=== PATIENT | female | born 1960 | race Caucasian/White ===

== ENCOUNTER 2018-02-09 17:00 | Outpatient (RCR) | payer BC ==
[~2018-02-09 17:00] MED LIST: LEVOTHYROXINE50 MCG PO; NABUMETONE500 MG PO; TRAZODONE HCL50 MG PO
== END 2018-02-13 ==
LOC: PT 17:00
PROVIDERS: ATTEND Specialist
DX: M17.11 Unilateral primary osteoarthritis, right knee (principal); E66.01 Morbid (severe) obesity due to excess calories

== ENCOUNTER 2018-03-09 16:57 | Outpatient (RCR) | payer BC | END 2018-03-16 | LOC: PT 16:57 | PROVIDERS: ATTEND Specialist | DX: M17.11 Unilateral primary osteoarthritis, right knee (principal); M25.561 Pain in right knee; R26.2 Difficulty in walking, not elsewhere classified; M62.81 Muscle weakness (generalized); E66.01 Morbid (severe) obesity due to excess calories | CPT/HCPCS: 97139 ==

== ENCOUNTER 2018-04-09 11:00 | Outpatient (RCR) | payer BC | END 2018-04-16 | LOC: PT 11:00 | PROVIDERS: ATTEND Specialist | DX: M17.11 Unilateral primary osteoarthritis, right knee (principal); M25.561 Pain in right knee; M62.81 Muscle weakness (generalized); R26.2 Difficulty in walking, not elsewhere classified | CPT/HCPCS: 97139 ==

== ENCOUNTER → 2018-12-03 | Outpatient (CLI) | payer BC ==
--- NOTE | 2018-12-03 13:08 | Diagnostic Imaging Report ---
EXAM: US ABDOMEN COMPLETE DATE: 12/03/2018 10:00 AM INDICATION: ^SCREENING FOR COLONIC NEOPLASIA; HEP C; HTN COMPARISON: None FINDINGS: Grayscale and color flow Doppler ultrasound of the abdomen was performed. Liver: 13.5 cm span. Normal parenchymal echogenicity. No intrahepatic mass or dilatation of biliary tree. Main portal vein 0.9 cm, nondilated, normal hepatopetal flow. Spleen: 8.3 cm, no splenomegaly. Biliary: Surgical absence of the gallbladder. Common bile duct 0.4 cm, normal. Pancreas: Partially obscured by bowel. Visualized portions show no mass or duct dilatation. Right kidney: 12.7 x 4.3 x 5.1 cm. No hydronephrosis or contour deforming mass. Cortical echogenicity normal. Left kidney: 9.9 x 4.5 x 5.0 cm. No hydronephrosis or contour deforming mass. Normal cortical echogenicity. Vessels: Visualized portions of aorta and IVC unremarkable. IMPRESSION: 1. No sonographic evidence for acute abdominal pathology. 2. No intrahepatic mass. No dilatation of the biliary tree. Signed by: Dr. Jeremie Humphreys M.D. on 12/03/2018 1:04 PM
== END ==
LOC: US 10:17
PROVIDERS: ATTEND Internal Medicine Gastroenterology
DX: Z12.11 Encounter for screening for malignant neoplasm of colon (principal); B18.2 Chronic viral hepatitis C; I10 Essential (primary) hypertension; Z71.3 Dietary counseling and surveillance; E66.01 Morbid (severe) obesity due to excess calories
CPT/HCPCS: 76700

== ENCOUNTER → 2018-12-31 | Day surgery (SDC) | payer BC ==
[~2018-12-31] MED LIST changes: +BUPROPION XL150 MG PO; +FENTANYL CITRATE/PF 100MCG/2 ML INJ ONE; +MIDAZOLAM HCL 2 MG/2 ML VIAL ONE; +PROPOFOL IV EMULSION 10 MG/ML 20 ML VIAL ONE; +ZOLOFT50 MG PO
--- OUTSIDE RECORDS SUMMARY | 2018-12-31 05:40 | XMS REPORT ---
Author Author [facility] Address Unknown Phone Unavailable Care Team Providers Care Spinner Tender Name Role Phone Carmencita RUIZ Unavailable Unavailable Problems This patient has no known problems. Allergies, Adverse Reactions, Alerts This patient has no known allergies or adverse reactions. Medications This patient has no known medications. Results Test Description Test Time Test Comments Text Results Atomic Results Result Comments US ABDOMEN COMPLETE 2018-12-03 12:54:00 [place] [address] Patient Name: DEANNA LOMAX MR #: [id number] : 1960 Age/Sex: 58/F Req #: [id number] Adm Physician: Ordered by: ZIGGY RUIZ MD Report #: [id number] Location: Room/Bed: Procedure: [id number] US/US ABDOMEN COMPLETE Exam Date: 12/03/18 Exam Time: 1038 REPORT STATUS: Signed EXAM: US ABDOMEN COMPLETE DATE: 12/03/2018 10:00 AM INDICATION: SCREENING FOR COLONIC NEOPLASIA; HEP C; HTN COMPARISON: None FINDINGS: Grayscale and color flow Doppler ultrasound of the abdomen was performed. Liver: 13.5 cm span. Normal parenchymal echogenicity. No intrahepatic mass or dilatation of biliary tree. Main portal vein 0.9 cm, nondilated, normal hepatopetal flow. Spleen: 8.3 cm, no splenomegaly. Biliary: Surgical absence of the gallbladder. Common bile duct 0.4 cm, normal. Pancreas: Partially obscured by bowel. Visualized portions show no mass or duct dilatation. Right kidney: 12.7 x 4.3 x 5.1 cm. No hydronephrosis or contour deforming mass. Cortical echogenicity normal. Left kidney: 9.9 x 4.5 x 5.0 cm. No hydronephrosis or contour deforming mass. Normal cortical echogenicity. Vessels: Visualized portions of aorta and IVC unremarkable. IMPRESSION: 1. No sonographic evidence for acute abdominal pathology. 2. No intrahepatic mass. No dilatation of the biliary tree. Signed by: Dr. Jean Marie Martinez M.D. on 12/03/2018 1:04 PM Dictated By: JEAN MARIE MARTINEZ MD [id number] Transcribed By: ABDIAS on 12/03/18 1304 COPY TO: ZIGGY RUIZ MD
[2018-12-31 08:00] VITALS: BP 116/68
== END | disposition home or self-care (01) ==
LOC: OR 05:35
PROVIDERS: ATTEND Internal Medicine Gastroenterology
DX: Z12.11 Encounter for screening for malignant neoplasm of colon (principal); B18.2 Chronic viral hepatitis C; I10 Essential (primary) hypertension; E66.01 Morbid (severe) obesity due to excess calories; Z68.43 Body mass index [BMI] 50.0-59.9, adult; Z71.3 Dietary counseling and surveillance; Z88.1 Allergy status to other antibiotic agents; Z88.8 Allergy status to other drugs, medicaments and biological substances; G47.33 Obstructive sleep apnea (adult) (pediatric); E03.9 Hypothyroidism, unspecified; F41.9 Anxiety disorder, unspecified; F32.9 Major depressive disorder, single episode, unspecified; K57.30 Diverticulosis of large intestine without perforation or abscess without bleeding; K64.8 Other hemorrhoids; Z01.810 Encounter for preprocedural cardiovascular examination
CPT/HCPCS: 45378; 93005; J2250; J2704